=== PATIENT | female | born 1945 | race Caucasian/White ===

== ENCOUNTER 2019-10-29 11:49 | Outpatient (CLI) | payer MEDICARE ==
[2019-10-29] VITALS (20 sets, daily range): BP systolic 129–163; BP diastolic 70–97
== END 2019-10-29 23:59 | disposition home or self-care (01) ==
LOC: CARD DIAG 11:49
PROVIDERS: ATTEND Internal Medicine Cardiovascular Disease
DX: R55 Syncope and collapse (principal)
CPT/HCPCS: 93660

== ENCOUNTER 2023-03-08 09:58 | Emergency (ER) | payer MEDICARE ==
[~2023-03-08] VITALS: Ht 167.6 cm; Wt 90.0 kg
[2023-03-08 10:01] VITALS: BP 153/93
--- NOTE | 2023-03-08 10:22 | NUR ---
Pt arrived via ambulance. Pt states she is unable to walk r/t pain and needed a w/c. Pt states she fell about 2 weeks ago. Pt states she has a PMHX of a stroke (2008) and her R foot does not work well. Causing her to fall landing on her L buttock. Pain in her R knee and R buttock. Pt states she has chronic back pain in L4-5. Pt educated to POC. Pt states understanding. Pending MD orders and eval.
[2023-03-08] MEDS ORDERED: HYDROcodone/acetaminophen 5mg/325mg tablet PO ONE (10:35)
--- NOTE | 2023-03-08 11:02 | NUR ---
MRI screening form faxed to MRI.
--- NOTE | 2023-03-08 11:25 | NUR ---
MRI was notified. MRI confirms they do have FAX. Will be here shortly.
--- NOTE | 2023-03-08 11:35 | NUR ---
patient at MRI at this time, changed into gown
--- NOTE | 2023-03-08 12:18 | NUR ---
Pt is back from MRI. Pt in stable condition.
[2023-03-08] MEDS ORDERED: PRED20TA PO (13:24)
[2023-03-08] MEDS ORDERED: HYDR-3965 PO (13:24)
[2023-03-08] MEDS ORDERED: predniSONE 20 mg tablet PO ONE (13:25)
== END 2023-03-08 13:34 | disposition home or self-care (01) ==
LOC: ER 09:58
DX: M54.31 Sciatica, right side (principal); I10 Essential (primary) hypertension; E11.9 Type 2 diabetes mellitus without complications; Z88.8 Allergy status to other drugs, medicaments and biological substances
CPT/HCPCS: 72148; 99284; J7512